=== PATIENT | female | born 1975 | race Caucasian/White ===

== ENCOUNTER 2016-07-05 07:48 | Outpatient (CLI) | payer OTHER ==
[2016-07-05 08:22] VITALS: BMI 35.5
[2016-07-05 11:04] LABS: ABSOLUTE NEUTROPHIL COUNT 8.4 K/mm3 (1.8-7.7); BASO % 0.2 % (0.2-1.0); EOS # 0.1 (0.0-0.5); EOS % 0.6 % (0.9-2.9); HEMATOCRIT 37.3 % (37.0-47.0); HEMOGLOBIN 12.7 gm/l (12.0-16.0); IMM NEUT% 0.2 % (0-1); LYMPH # 1.5 (1.0-4.8); LYMPH % 13.8 % (15-45); MEAN CELL VOLUME 98.2 fl (81.0-99.0); MEAN CORPUSCULAR HEMOGLOBIN 33.4 pg (27.0-31.0); MEAN PLATELET VOLUME 11.5 fl (7.4-10.4); MONO # 0.7 (0.0-0.8); MONO % 6.6 % (4-12); NEUT % 78.6 % (43-75); PLATELET COUNT 190 K/mm3 (130-400); RED CELL DISTRIBUTION WIDTH 13.2 % (11.5-14.5)
[2016-07-05 11:27] LABS: ALB/GLOB RATIO 0.9 (>1.0); ALBUMIN 3.1 gm/dL (3.5-5.7); URIC ACID 2.6 mg/dL (2.3-7.6)
[2016-07-05 11:45] LABS: CREATININE,RANDOM URINE 67 mg/dL
[2016-07-05 13:11] LABS: CREATININE,RANDOM URINE 16 mg/dL
== END 2016-07-05 15:58 | disposition home or self-care (01) ==
LOC: FBCOUT 07:48 → FBC 07:48 → FBCOUT 15:58
PROVIDERS: ATTEND Family Medicine
DX: O46.90 Antepartum hemorrhage, unspecified, unspecified trimester (principal); O09.529 Supervision of elderly multigravida, unspecified trimester; Z3A.00 Weeks of gestation of pregnancy not specified
CPT/HCPCS: 85025; 80053; 83615; 84550; 84156 ×2; 36415; 59025; 81002; G0463

== ENCOUNTER 2016-07-08 13:47 | Inpatient (IN) | payer OTHER ==
[2016-07-08] MEDS ORDERED: OXYTOCIN IN LR 500 ML IV ONE ×2 (14:20→15:12)
[2016-07-08] MEDS ORDERED: SODIUM CHLORIDE 0.9% FLUSH 10 ML ONE (15:11)
[2016-07-08] MEDS ORDERED: IV START KIT ONE (15:11)
[2016-07-08] MEDS ORDERED: OXYTOCIN 10 UNITS/ML VIAL ONE (15:11)
[2016-07-08] MEDS ORDERED: MINERAL OIL 25 ML BOT ONE (15:11)
[2016-07-08] MEDS ORDERED: LIDOCAINE 1% (PRES FREE) 30 ML VIAL ONE (15:12)
[2016-07-08] MEDS ORDERED: LIDOCAINE Viscous 2% 15 ML UDCUP ONE (15:12)
[2016-07-08] MEDS ORDERED: PUMP TUBING ONE (15:12)
[2016-07-08] MEDS ORDERED: LACTATED RINGERS 500 ML IV ONE (15:51)
[2016-07-08 15:53] VITALS: BMI 34.3
--- NOTE | 2016-07-08 16:05 | PCMAN ---
OB Admission Note - History : 1 Term: 0 : 0 Abortions (S&E): 0 Livin EDC:: 07/22/16 Gestational Age (weeks): 38 Days (#/7): 0 Admit Cervical Dilation:: 5.5 Admit Cervical Effacement (%):: 80 Admit Station:: 0 Admit Presentaton:: Vertex Membrane Status: Bulging Labor Onset (Date): 07/08/16 Labor Onset (Time): 10:00 Contractions: Yes Contraction Frequency:: Q3-5 mins Heart Rate:: 135 Status:: Category 1, moderate variability, accels present, no decels Summary of Course:: 41 yo at 38 wks, presented to [facility] in labor. GBS negative Proteinuria in this , as well as AMA Plan was for IOL at 39 wks per MFM PMHx: HTN (previously on meds, but stopped prior to ), cervical polyp, allergic rhinitis, proteinuria PSHx: neg SOCHx: denies tob, etoh or illicit drugs - Labs Blood Type: B (+) positive Hct/Hgb:: 37.9 Rubella Status: Immune GBS Status: Negative Abnormal Labs: None Other Labs:: Antibody neg RPR NR HIV NR GC/CT NR HBSAg NR 1hr 77/100 Pap neg Declined quad and referral to [facility] - Review of Systems Denies CP, SOB, NEGRON, RUQ pain - Physical Exam General: Afebrile, No Acute Distress Psych/Mental Status: Mood/Affect Appropriate Neurological: Grossly Intact, Alert, Normal Speech HEENT: Atraumatic, Mucous membr. moist/pink Lungs: Clear to Auscultation Bilaterally, Normal Air Movement Cardiovascular: Regular Rate and Rhythm, Normal S1, Normal S2 Genitourinary: Normal Female Genitalia Extremities: Full ROM Skin: Normal Color, Warm, Dry - Problems (1) Active labor at term Status: Acute Code: [id number] Assessment/Plan: Admit/obs, GBS neg Declines meds for pain Expectant management Patient also reports no UOP since 5am. Will encourage PO hydration and will give LR IV bolus. (2) Advanced maternal age (AMA) in Status: Acute Code: [id number] Assessment/Plan: Declined quad, declined genetic counseling
[2016-07-08 16:37] LABS: HEMATOCRIT 40.1 % (37.0-47.0); HEMOGLOBIN 13.9 gm/l (12.0-16.0); MEAN CELL VOLUME 96.2 fl (81.0-99.0); MEAN CORPUSCULAR HEMOGLOBIN 33.3 pg (27.0-31.0); MEAN CORPUSCULAR HGB CONC 34.7 g/dl (33.0-37.0); RED CELL DISTRIBUTION WIDTH 13.2 % (11.5-14.5)
--- NOTE | 2016-07-08 19:50 | PDOC36 ---
Provider Note Subject: MD Interval Note Note: Patient with likely SROM - leaking clear fluid. Suspect OP due to shape of her belly. Rocking hips in hands/knees position. Patient did not void x 12 hrs so straight cath was done. 900 mL of urine voided. FHT: 145, intermittent auscultation TOCO: Q3-5 mins A/P: 41 yo at 38 wks, labor - RN will ribozo patient, continue position changes - expectant management - WBC 20, afebrile
--- NOTE | 2016-07-08 23:54 | PDOC36 ---
Provider Note Subject: MD Interval note Note: SVE 8-9/100/-1 per RN. Patient not feeling pressure. Suspect baby is still OP, trying position changes. FHT 135-140 on intermittent auscultation. Will get full NST at next check. Ctx Q 3 mins A/P: 41 yo at 38 wks, labor - expectant management
[2016-07-09] MEDS ORDERED: OXYTOCIN IN LR 500 ML IV PRN (02:33)
--- NOTE | 2016-07-09 06:38 | PDOC36 ---
Provider Note Subject: MD Interval Note Note: Patient with anterior lip/0 station. Feeling pressure. Has been doing position changes overnight. Pitocin also started, currently at 4. Afebrile, BP normal. Patient continues to be unable to void on her own. She has been straight cathed twice (900 out, then 500 out). Urine clear. Patient is very tired from labor overnight. FHT: 135, moderate variability, accels present, occasional variable decels TOCO: Q2.5 - 5 mins A/P: 41 yo at 38 1/7 wks, slow progress overnight - will continue to titrate pit - will check CMP to assess renal function - expectant management - declines meds for pain
[2016-07-09 07:28] LABS: HEMATOCRIT 36.7 % (37.0-47.0); HEMOGLOBIN 12.8 gm/l (12.0-16.0); MEAN CELL VOLUME 96.3 fl (81.0-99.0); MEAN CORPUSCULAR HEMOGLOBIN 33.6 pg (27.0-31.0); MEAN CORPUSCULAR HGB CONC 34.9 g/dl (33.0-37.0)
[2016-07-09 07:56] LABS: ALB/GLOB RATIO 0.9 (>1.0); CALCIUM 8.5 mg/dL (8.6-10.3)
[2016-07-09] MEDS ORDERED: LIDOCAINE 1% (PRES FREE) 30 ML VIAL SUB-Q ONE (09:01)
[2016-07-09] MEDS ORDERED: DOCUSATE SODIUM 100 MG CAPSULE PO PRN (09:20)
[2016-07-09] MEDS ORDERED: IBUPROFEN 800 MG TABLET PO PRN (09:20)
[2016-07-09] MEDS ORDERED: DIPHTH,PERTUSS(ACELL),TET VAC 0.5 ML VIAL IM V ONE (09:20)
[2016-07-09] MEDS ORDERED: HYDROCODONE/ACETAMINOPHEN 5/325MG TABLET PO PRN (09:20)
[2016-07-09] MEDS ORDERED: BENZOCAINE/MENTHOL 60 APPLIC/BOT TP PRN (09:20)
[2016-07-09] MEDS ORDERED: LANOLIN 50 APPLIC/7G TUBE TP PRN (09:20)
--- NOTE | 2016-07-09 09:28 | PCMDEL ---
Delivery Note - Labor 1st stage (hr/min):: 21 hrs 28 min 2nd stage (hr/min):: 1 hr 25 min 3rd stage (hr/min):: 4 min Total (hr/min):: 22 hr 53 min Pushed (hr/min):: 1 hr - Delivery Delivery (Date): 07/09/16 Delivery (Time): 08:53 Gender: Female Presentation: Cephalic Position: OT Umbilical Cord: 3 Vessel Delayed Cord Clamping:: < 1-2 min 1 Minute Total: 8 5 Minute Total: 9 Placenta:: 08:57 EBL:: 600 mL Perineum:: 2nd degree perineal laceration Suture:: 3-0 Vicryl Anesthesia/Meds:: Lidocaine 1% Length ROM:: 16 hrs 53 min Comments:: of NB girl, apgars 8/9, vigorous infant handed to mom. During pushing, MOC noted to have R vaginal sulcus tear that continued to bleeding until after delivery. Cord clamped and cut after >1 min delay. Cord blood obtained. Placenta delivered and grossly normal. Pitocin IV started, fundus firm with massage. 2nd degree perineal laceration repaired. Lidocaine 1% used as local anesthetic. EBL 600 mL, likely due to vaginal sulcus tear.
[2016-07-09] MEDS ORDERED: LACTATED RINGERS 1,000 ML ONE (10:33)
[2016-07-10 06:08] LABS: HEMATOCRIT 22.7 % (37.0-47.0); HEMOGLOBIN 7.6 gm/l (12.0-16.0)
--- NOTE | 2016-07-10 10:46 | PDOC44 ---
- Subjective Day: 1 Reports Pain Tolerable - Objective Temp Pulse Resp BP Pulse Ox 98.6 F 93 18 101/55 07/10/16 07:43 07/10/16 07:43 07/10/16 07:43 07/10/16 07:43 Lab Results 07/10/16 05:15 Hgb 7.6 L D Hct 22.7 L Current Medications Generic Name Dose Route Start Last Admin Trade Name Freq PRN Reason Stop Dose Admin Acetaminophen/Hydrocodone Bitart 1 - 2 tab 07/09/16 09:20 Altair 5/325 PO Q4H PRN Pain (Moderate) Benzocaine/Menthol 1 applic 07/09/16 09:20 Dermoplast TP PRN PRN Patient Comfort Docusate Sodium 100 mg 07/09/16 09:20 Colace PO DAILY PRN Comfort Emollient Ointment 1 applic 07/09/16 09:20 [id number] TP PRN PRN sore nipples Ibuprofen 800 mg 07/09/16 09:20 07/09/16 10:50 Motrin PO 800 mg Q6H PRN Administration Pain (Mild) Sodium Chloride 10 ml 07/08/16 14:20 07/09/16 11:44 Normal Saline 10ml Flush IV 10 ml PRN PRN Administration IV Flush Sodium Chloride 10 ml 07/09/16 17:00 07/10/16 07:19 Normal Saline 10ml Flush IV Not Given Q8HR VARSHA - Physical Exam General: Afebrile Psych/Mental Status: Mood/Affect Appropriate, Judgment/Insight Intact Neurological: Grossly Intact, Alert, Oriented x 4 Lungs: Clear to Auscultation Bilaterally, Normal Air Movement Cardiovascular: Regular Rate and Rhythm Breast: Soft Fundus: Firm, Below Umbilicus - Problems:Assessment/Plan (1) Vaginal delivery Status: Acute Assessment/Plan: Doing well Normal exam Continue routine care Encourage (2) Acute post-hemorrhagic anemia Status: Acute Assessment/Plan: Monitor for presyncope or weakness Start ferrous sulfate bid Disposition: Stable
[2016-07-10] MEDS ORDERED: FERROUS SULFATE (65 Fe) 325 MG TABLET PO SCH (21:00)
[2016-07-11 09:11] VITALS: BP 131/74
--- NOTE | 2016-07-11 10:04 | PDOC39B ---
Hospital Course: ADMIT DATE: 07/08/16 DISCHARGE DATE: 07/11/16 ADMISSION DIAGNOSES: term iup, ama, active labor, proteinuria. PROCEDURES: HISTORY OF PRESENT ILLNESS: 41 year old G1 T0 L0 at 38 weeks 1 days presenting with labor, proteinuria. HOSPITAL COURSE: The patient had complicated by vaginal sulcus tear and pp anemia. Not symptomatic, treated with po iron, no transfusion. By day of discharge the patient is ambulating, eating, voiding, and passing flatus without difficulty. Pain is controlled and lochia is appropriate. She is breast feeding. - Physical Exam Vital Signs: Temp Pulse Resp BP Pulse Ox 98.0 F 102 18 131/74 07/11/16 09:05 07/11/16 09:05 07/11/16 09:05 07/11/16 09:05 General: Afebrile, No Acute Distress Psych/Mental Status: Judgment/Insight Intact, Bonding Well Neurological: Alert Lungs: Clear to Auscultation Bilaterally Cardiovascular: Regular Rate and Rhythm, No Murmur Fundus: Firm, Midline, At Umbilicus Lochia: Light Extremities: Full ROM, Edema (1+ ble) Skin: Warm, Dry, Intact, No Rash - Discharge Diagnosis (1) Acute post-hemorrhagic anemia Status: Acute Assessment/Plan: No presyncope or weakness Start ferrous sulfate bid home on iron. (2) Advanced maternal age (AMA) in Status: Acute Assessment/Plan: Declined quad, declined genetic counseling. Normal exam of baby. (3) Vaginal delivery Status: Acute Assessment/Plan: Doing well Normal exam Continue routine care Encourage home today, f/u with baby. - Discharge Plan Condition: Good Disposition: Home Prescriptions: Docusate Sodium [Colace] 100 mg PO DAILY #30 cap Ibuprofen [IBUPROFEN 600 MG TABLET (SHF)] 1 tab PO Q6H PRN #30 tablet PRN Reason: Pain FERROUS SULFATE (65 Fe) [IRON FERROUS SULFATE 325 MG TABLET (SHF)] 325 mg PO BID #60 tab Follow-Up: Ted Acosta PA-C [Physician [employer] Worker] - In 6 weeks
== END 2016-07-11 12:30 | disposition home or self-care (01) | DRG 775 ==
LOC: FBC 13:47 → FBCOUT 13:47 → FBC 14:20 → FBCOUT 14:20
PROVIDERS: ADMIT Family Medicine; ATTEND Family Medicine
PROC: 10E0XZZ Delivery of Products of Conception, External Approach (ICD-10-PCS; principal; 2016-07-09)
PROC: 0KQM0ZZ Repair Perineum Muscle, Open Approach (ICD-10-PCS; 2016-07-09)
DX: O12.14 Gestational proteinuria, complicating childbirth (principal); D62 Acute posthemorrhagic anemia; O34.43 Maternal care for other abnormalities of cervix, third trimester; N84.1 Polyp of cervix uteri; O09.513 Supervision of elderly primigravida, third trimester; O32.8XX0 Maternal care for other malpresentation of fetus, not applicable or unspecified; O76 Abnormality in fetal heart rate and rhythm complicating labor and delivery; O70.1 Second degree perineal laceration during delivery; O90.81 Anemia of the puerperium; Z3A.38 38 weeks gestation of pregnancy; Z37.0 Single live birth; Z28.82 Immunization not carried out because of caregiver refusal

== ENCOUNTER 2016-07-14 12:51 | Emergency (ER) | payer OTHER ==
[2016-07-14] MEDS ORDERED: ALBUTEROL/IPRATROPIUM 2.5/0.5 MG 3 ML/EACH DOSE ONE (15:17)
[2016-07-14 15:37] LABS: SPECIFIC GRAVITY 1.015 (1.001-1.030); URINE BILIRUBIN NEGATIVE (NEGATIVE); URINE BLOOD NEGATIVE (NEGATIVE); URINE GLUCOSE (UA) NEGATIVE (NEGATIVE); URINE LEUKOCYTE ESTERASE NEGATIVE (NEGATIVE); URINE NITRITE NEGATIVE (NEGATIVE); URINE PROTEIN NEGATIVE (NEGATIVE); URINE UROBILINOGEN NORMAL (0-1 mg/dl)
[2016-07-14 15:39] LABS: URINE APPEARANCE CLEAR; URINE COLOR LIGHT YELLOW
[2016-07-14 16:04] LABS: BASO % 0.2 % (0.2-1.0); EOS # 0.2 (0.0-0.5); EOS % 1.6 % (0.9-2.9); HEMATOCRIT 28.1 % (37.0-47.0); HEMOGLOBIN 9.3 gm/l (12.0-16.0); IMM NEUT # 0.3 K/mm3 (0-0.2); IMM NEUT% 1.8 % (0-1); LYMPH # 2.2 (1.0-4.8); LYMPH % 16.6 % (15-45); MEAN CELL VOLUME 101.1 fl (81.0-99.0); MEAN CORPUSCULAR HEMOGLOBIN 33.5 pg (27.0-31.0); MEAN CORPUSCULAR HGB CONC 33.1 g/dl (33.0-37.0); MONO # 0.9 (0.0-0.8); MONO % 6.3 % (4-12); NEUT % 73.5 % (43-75); PLATELET COUNT 314 K/mm3 (130-400); RED CELL DISTRIBUTION WIDTH 13.1 % (11.5-14.5)
[2016-07-14 16:17] LABS: ALB/GLOB RATIO 0.9 (>1.0); ALBUMIN 3.3 gm/dL (3.5-5.7); CALCIUM 8.7 mg/dL (8.6-10.3)
== END 2016-07-14 17:12 | disposition home or self-care (01) ==
LOC: ED 12:51
DX: J06.9 Acute upper respiratory infection, unspecified (principal); J45.909 Unspecified asthma, uncomplicated